=== PATIENT | male | born 1965 | race Two or more races ===

== ENCOUNTER 2024-10-24 14:11 | Outpatient (CLI) | payer OTHER ==
[~2024-10-24 14:11] MED LIST: AVALIDE 150-12.1 TA1; FLOVENT 110MCG7.9 GM IH; PROVENTIL3 ML/2.5 M IH; RIOMET500 MG/5 M; ZITHROMAX500 MG PO; ZYNCOF 20-400120 ML PO
== END 2024-10-24 14:12 | disposition home or self-care (01) ==
LOC: SONOGRAMA 14:11
PROVIDERS: ATTEND Pathology Anatomic Pathology & Clinical Pathology
DX: D34 Benign neoplasm of thyroid gland (principal); E06.3 Autoimmune thyroiditis; E04.1 Nontoxic single thyroid nodule